=== PATIENT | female | born 1980 | race Caucasian/White ===

== ENCOUNTER 2019-01-18 20:12 | Emergency (ER) | payer OTHER, SELFPAY ==
--- OUTSIDE RECORDS SUMMARY | 2019-01-18 20:15 | XMS REPORT | Encounter Summary ---
:1980 Author Reason for Visit sinus symptoms; sore throat; URI Instructions 1. Bronchitis Medrol (Prakash) 4 mg tablets in a dose pack azithromycin 250 mg tablet 2. Allergic rhinitis 3. Body mass index 25-29 - overweight learning about healthy weight 4. Immunization refused 5. Influenza vaccination declined Discussion Note: None recorded. Plan of Care Patient Instructions Meds were sent to your pharmacy today, please call if any issues zpak and medrol dosepak continue flonase and mucinex call/email if you are not feeling better within the next 1-2 weeks increase hydration, take meds with food Reminders Provider Appointments None recorded. Lab None recorded. Referral None recorded. Procedures None recorded. Surgeries None recorded. Imaging None recorded. Medications Name Start Date azithromycin 250 mg tablet TAKE 2 TABLETS (500 MG) BY ORAL ROUTE ONCE DAILY FOR 1 DAY THEN 1 TABLET (250 MG) BY ORAL ROUTE ONCE DAILY FOR 4 DAYS Medrol (Prakash) 4 mg tablets in a dose pack as directed sumatriptan 100 mg tablet Take 1 tablet by oral route as needed. as needed for migraine Medications Administered None recorded. Vitals Height Weight BMI Blood Pressure 5 ft 7 in 164 lbs 25.7 kg/m2 130/82 mm[Hg] Lab Results None recorded. Allergies Code Code System Name Reaction Severity Status Onset NKDA Problems Name Status Onset Date Source Migraine Active 04/17/2018 Procedures None recorded. Vaccine List None recorded. Social History Smoking Status Heavy Tobacco Smoker (1 PPD) Past Encounters 11/05/2018 Bronchitis; Allergic Rhinitis; Body Mass Index 25-29 - Overweight; Immunization Refused; Influenza Vaccination Declined Stephanie Barker MD: [address], [address], [place] [address], Ph. History of Present Illness Note: 38 yo female, accompanied by c/o ST, nasal drainage/congestion , dark yellow/thick mucous, cough, heavy, thick dark yellow sputum, x 6 days, worse yesterday<div>no wheeze, ear pain, n/v/d</div><div> taking OTC mucinex and flonase with mild relief</div>Review of Systems: ROS as noted in the HPI Review of Systems None recorded. Physical Exam Notes: General: well developed, well nourished, in no acute distress. fatigued

Head: normocephalic and atraumatic.

Eyes: PERRL/EOM intact, conjunctiva and sclera clear with out nystagmus.

Ears: TM's intact and clear with normal canals with grossly normal hearing.

Nose: turbinates congested, no sinus TTP. no deformity, discharge, inflammation, or lesions.

Mouth: (+) injection of posterior oropharynx, otherwise no deformity or lesions with good dentition.

Neck: no masses, thyromegaly , (+) left tender CLN < 1 cm

Chest Wall: no deformities or masses noted.

Lungs: clear bilaterally to auscultation. nonlabored respiratory effort, no wheeze, rales or rhonchi

Heart: chest non-tender; regular rate and rhythm, S1, S2 without murmurs, rubs, or gallops

Abdomen: soft, nontender, nondistended, no masses, no hernia, no rebound, normoactive bowel sounds

Msk: no deformity or scoliosis noted of thoracic or lumbar spine.

Pulses: pulses normal in all 4 extremities.

Extremities: no clubbing, cyanosis, edema, or deformity noted with normal full range of motion of all joints.

Neurologic: no focal deficits, cranial nerves II-XII grossly intact with normal sensation, reflexes, coordination, muscle strength and tone.

Skin: intact without lesions or rashes.

Lymph Nodes:no significant cervical, axillary or supraclavicular adenopathy.

Psych: alert and cooperative; normal mood and affect; normal attention span and concentration. No suicidal/homicidal ideations, no panic attacks
--- OUTSIDE RECORDS SUMMARY | 2019-01-18 20:15 | XMS REPORT | Encounter Summary ---
:1980 Author Reason for Visit Right lump in neck Instructions 1. Cervical lymphadenitis Keflex 500 mg capsule 2. Elevated blood-pressure reading without diagnosis of hypertension elevated blood pressure: care instructions Discussion Note: None recorded. Plan of Care Reminders Provider Appointments None recorded. Lab None recorded. Referral None recorded. Procedures None recorded. Surgeries None recorded. Imaging None recorded. Medications Name Start Date Keflex 500 mg capsule Take 1 capsule every 8 hours by oral route as directed for 10 days. sumatriptan 100 mg tablet Take 1 tablet by oral route as needed. as needed for migraine Medications Administered None recorded. Vitals Height Weight BMI Blood Pressure 5 ft 7 in 166.2 lbs 26 kg/m2 160/110 mm[Hg] Lab Results None recorded. Allergies Code Code System Name Reaction Severity Status Onset NKDA Problems Name Status Onset Date Source Migraine Active 04/17/2018 Procedures None recorded. Vaccine List None recorded. Social History Smoking Status Heavy Tobacco Smoker (1 PPD) Past Encounters 11/21/2018 Cervical Lymphadenitis; Elevated Blood-pressure Reading without Diagnosis of Hypertension Bandar Morales MD: [address], [address], [place] [address] , Ph. 11/05/2018 Bronchitis; Allergic Rhinitis; Body Mass Index 25-29 - Overweight; Immunization Refused; Influenza Vaccination Declined Stephanie Barker MD: [address], [address], [place] [address], Ph. History of Present Illness Note: Complaining of a tender lump in the R side of the neck since 2 days ago. Concomitantly, difficulty swallowing, nasal congestion (hx of chronic allergic rhinitis). Denies ear pain, fever or weight loss. Review of Systems Comprehensive General Adult ROS Reported By: Patient Constitutional: Constitutional: no fever Eyes: Eyes: no vision change ENMT: Nose: sinus problems Cardiovascular: Cardiovascular: no chest pain, no palpitations, no lightheadedness Respiratory: Respiratory: no cough, no wheezing, no shortness of breath Gastrointestinal: Gastrointestinal: no abdominal pain, no nausea, no vomiting , no constipation, no diarrhea Musculoskeletal: Musculoskeletal: no muscle aches, no swelling in the extremities Neurologic: Neurologic: no loss of consciousness, no headaches Psychiatric: Psych: no depression, no alcohol abuse, no anxiety, no suicidal thoughts Physical Exam General Adult Exam (male) Reported By: Patient Constitutional: General Appearance: healthy-appearing, overweight. Level of Distress: NAD. Ambulation: ambulating normally Psychiatric: Insight: good judgement. Mental Status: active and alert, normal mood, normal affect. Orientation: to time, to place, to person. Memory: recent memory normal, remote memory normal Eyes: Lids and Conjunctivae: non-injected, no discharge. EOM: EOMI ENMT: Ears: TMs clear. Nose: no sinus tenderness, nasal discharge, post nasal drip. Lips, Teeth, and Gums: no mouth or lip ulcers. Oropharynx: moist mucous membranes, no erythema, no exudates Neck: Neck: supple, trachea midline. Lymph Nodes: cervical LAD. Thyroid: no enlargement, non-tender Lungs: Auscultation: breath sounds normal Cardiovascular: Heart Auscultation: RRR, normal S1, normal S2, no murmurs Musculoskeletal:: Motor Strength and Tone: normal, normal tone. Extremities: no edema Neurologic: Gait and Station: normal gait Skin: Inspection and palpation: no rash, no lesions
[2019-01-18] MEDS ORDERED: DIPHENHYDRAMINE 50 MG/ML VIAL ONE (21:41)
[2019-01-18] MEDS ORDERED: NA CHLORIDE 0.9% 1,000 ML ONE (21:41)
[2019-01-18] MEDS ORDERED: METOCLOPRAMIDE 10 MG/2mL INJ ONE (21:41)
--- NOTE | 2019-01-18 23:13 | ER ---
Nurse's Notes [facility] Name: Cher Ball Age: 38 yrs Sex: Female : 1980 Arrival Date: 01/18/2019 Time: 20:16 Bed 28 Private MD: Out, [facility] Diagnosis: Migraine Presentation: 01/18 21:00 Presenting complaint: Patient states: "I am having a sever migraine that won't go jd3 away.". Transition of care: patient was not received from another setting of care. Onset of symptoms was January 18, 2019. Risk Assessment: Do you want to hurt yourself or someone else? Patient reports no desire to harm self or others. Initial Sepsis Screen: Does the patient meet any 2 criteria? No. Patient's initial sepsis screen is negative. Does the patient have a suspected source of infection? No. Patient's initial sepsis screen is negative. Care prior to arrival: None. 21:00 Method Of Arrival: Ambulatory jd3 21:00 Acuity: DWIGHT 3 jd3 Triage Assessment: 21:43 Headache History: The patient has had previous headaches and this one is similar to mg2 previous episodes. General: Behavior is calm, cooperative. Pain:. 22:54 Pain: Also complains of photophobia. 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 - Social history:: Smoking status: Patient uses tobacco products, smokes one pack cigarettes per day. - Ebola Screening: : Patient negative for fever greater than or equal to 101.5 degrees Fahrenheit, and additional compatible Ebola Virus Disease symptoms. Screenin:42 Abuse screen: Denies threats or abuse. Denies injuries from another. Nutritional mg2 screening: No deficits noted. Tuberculosis screening: No symptoms or risk factors identified. Fall Risk IV access (20 points). Assessment: 21:41 General: Appears in no apparent distress. uncomfortable, Behavior is calm, cooperative. mg2 Pain: Complains of pain in head Pain does not radiate. Pain currently is 10 out of 10 on a pain scale. Quality of pain is described as aching, Pain began gradually, today Is intermittent. Neuro: Level of Consciousness is awake, alert, obeys commands, Oriented to person, place, time, situation, Reports headache frontal area. Cardiovascular: Capillary refill < 3 seconds Patient's skin is warm and dry. Respiratory: Airway is patent Respiratory effort is even, unlabored, Respiratory pattern is regular, symmetrical. GI: No signs and/or symptoms were reported involving the gastrointestinal system. : No signs and/or symptoms were reported regarding the genitourinary system. EENT: No signs and/or symptoms were reported regarding the EENT system. Derm: Skin is intact, is healthy with good turgor, Skin is pink, warm \\T\\ dry. normal. Musculoskeletal: Circulation, motion, and sensation intact. Capillary refill < 3 seconds. 22:52 Reassessment: Patient states feeling better. Patient states symptoms have improved. mg2 Vital Signs: 21:02 BP 155 / 99; Pulse 81; Resp 19 S; Temp 98.1(O); Pulse Ox 98% on R/A; Weight 77.11 kg jd3 (R); Height 5 ft. 7 in. (170.18 cm) (R); Pain 10/10; 22:52 BP 153 / 98; Pulse 78; Resp 18; Pulse Ox 100% on R/A; Pain 6/10; mg2 23:25 BP 145 / 78; Pulse 77; Resp 18; Temp 98.5; Pulse Ox 100% on R/A; Pain 2/10; mg2 21:02 Body Mass Index 26.63 (77.11 kg, 170.18 cm) jd3 ED Course: 20:16 Patient arrived in ED. es 20:17 Out, [facility] is Private Physician. es 21:01 Triage completed. jd3 21:03 Arm band placed on. jd3 21:06 Joel Perez MD is Attending Physician. ps1 21:16 Nino Monique, ROXANNA is Primary Nurse. mg2 21:42 Patient has correct armband on for positive identification. Pulse ox on. NIBP on. Door mg2 closed. Warm blanket given. 21:42 No provider procedures requiring assistance completed. Inserted saline lock: 20 gauge mg2 in left antecubital area, using aseptic technique. 21:46 Harry Benavides NP is PHCP. pm1 23:24 IV discontinued, intact, bleeding controlled, No redness/swelling at site. Pressure mg2 dressing applied. Administered Medications: :41 Drug: Reglan 10 mg Route: IVP; Site: left antecubital; mg2 23:23 Follow up: Response: No adverse reaction; Marked relief of symptoms mg2 :41 Drug: Benadryl 50 mg Route: IVP; Site: left antecubital; mg2 23:23 Follow up: Response: No adverse reaction; Marked relief of symptoms mg2 21:41 Drug: NS 0.9% 1000 ml Route: IV; Rate: 1 bolus; Site: left antecubital; mg2 23:22 Follow up: Response: No adverse reaction; IV Status: Completed infusion; IV Intake: mg2 1000ml Intake: 23:22 IV: 1000ml; Total: 1000ml. mg2 Outcome: 23:12 Discharge ordered by MD. pm1 23:24 Discharged to home ambulatory, with family. mg2 23:24 Condition: stable 23:24 Discharge instructions given to patient, family, Instructed on discharge instructions, follow up and referral plans. Demonstrated understanding of instructions, follow-up care. 23:26 Patient left the ED. mg2 Signatures: Mala Lugo Patrick, NP LINGO CLEANER pm1 Neno Saldivar RN RN jd3 Joel Perez MD MD ps1 Nino Monique RN RN mg2 Corrections: (The following items were deleted from the chart) 23:25 22:50 BP 145 / 78; Pulse 77bpm; Resp 18bpm; Pulse Ox 100% RA; Temp 98.5F; Pain 2/10; mg2mg2
--- NOTE | 2019-01-18 23:14 | EDPHYS ---
Physician Documentation [facility] Name: Cher Ball Age: 38 yrs Sex: Female : 1980 Arrival Date: 01/18/2019 Time: 20:16 Bed 28 Private MD: Out, [facility] ED Physician Joel Perez HPI: 01/18 21:16 This 38 yrs old Female presents to ER via Ambulatory with complaints of ps1 Headache. 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 Attempted to ps1 take sumatriptan to break her migraine. States that she had episodes of vomiting and has not been able to break the migraine .She does not have neurology care. She states that his episode is similar to her previous in terms of location and presentation. Frontal and bandlike. Associated with photo and phonophobia. More intense this episode. . 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 - Social history:: Smoking status: Patient uses tobacco products, smokes one pack cigarettes per day. - Ebola Screening: : Patient negative for fever greater than or equal to 101.5 degrees Fahrenheit, and additional compatible Ebola Virus Disease symptoms. ROS: 21:16 Constitutional: Negative for fever, chills, and weight loss, Eyes: Negative for injury, ps1 pain, redness, and discharge, ENT: Negative for injury, pain, and discharge, Cardiovascular: Negative for chest pain, palpitations, and edema, Respiratory: Negative for shortness of breath, cough, wheezing, and pleuritic chest pain, Abdomen/GI: Negative for abdominal pain, nausea, vomiting, diarrhea, and constipation, Skin: Negative for injury, rash, and discoloration. 21:16 Neuro: Positive for headache. Exam: 21:16 Constitutional: This is a well developed, well nourished patient who is awake, alert, ps1 and in no acute distress. Head/Face: Normocephalic, atraumatic. Eyes: Pupils equal round and reactive to light, extra-ocular motions intact. Lids and lashes normal. Conjunctiva and sclera are non-icteric and not injected. Chest/axilla: Normal chest wall appearance and motion. Nontender with no deformity. No lesions are appreciated. Cardiovascular: Regular rate and rhythm. No gallops, murmurs, or rubs. Normal PMI, no JVD. No pulse deficits. Respiratory: Lungs have equal breath sounds bilaterally, clear to auscultation and percussion. No rales, rhonchi or wheezes noted. No increased work of breathing, no retractions or nasal flaring. Abdomen/GI: Soft, non-tender, with normal bowel sounds. No distension or tympany. No guarding or rebound. No evidence of tenderness throughout. Skin: Warm, dry with normal turgor. Normal color with no rashes, no lesions, and no evidence of cellulitis. MS/ Extremity: Pulses equal, no cyanosis. Neurovascular intact. Full, normal range of motion. Neuro: Awake and alert, GCS 15, oriented to person, place, time, and situation. Cranial nerves II-XII grossly intact. Sensory grossly intact. Vital Signs: 21:02 BP 155 / 99; Pulse 81; Resp 19 S; Temp 98.1(O); Pulse Ox 98% on R/A; Weight 77.11 kg jd3 (R); Height 5 ft. 7 in. (170.18 cm) (R); Pain 10/10; 22:52 BP 153 / 98; Pulse 78; Resp 18; Pulse Ox 100% on R/A; Pain 6/10; mg2 23:25 BP 145 / 78; Pulse 77; Resp 18; Temp 98.5; Pulse Ox 100% on R/A; Pain 2/10; mg2 21:02 Body Mass Index 26.63 (77.11 kg, 170.18 cm) jd3 MDM: 21:27 Patient medically screened. ps1 23:09 Data reviewed: vital signs. Data interpreted: Pulse oximetry: on room air is 100 %. pm1 Interpretation: normal. Counseling: I had a detailed discussion with the patient and/or guardian regarding: the historical points, exam findings, and any diagnostic results supporting the discharge/admit diagnosis, the need for outpatient follow up, to return to the emergency department if symptoms worsen or persist or if there are any questions or concerns that arise at home. 23:09 ED course: Patient offered additional pain medication. Patient is at 6/10 pain and does pm1 not want additional medications. She is comfortable at her pain level and wants to go home. Does not want any prescriptions, comfortable with the migraine medications that she has at home. Administered Medications: 21:41 Drug: Reglan 10 mg Route: IVP; Site: left antecubital; mg2 23:23 Follow up: Response: No adverse reaction; Marked relief of symptoms mg2 21:41 Drug: Benadryl 50 mg Route: IVP; Site: left antecubital; mg2 23:23 Follow up: Response: No adverse reaction; Marked relief of symptoms mg2 21:41 Drug: NS 0.9% 1000 ml Route: IV; Rate: 1 bolus; Site: left antecubital; mg2 23:22 Follow up: Response: No adverse reaction; IV Status: Completed infusion; IV Intake: mg2 1000ml Disposition: 01/19 13:20 Co-signature as Attending Physician, Joel Perez MD Available for consultation at [facility] all times. . Disposition: 01/18/19 23:12 Discharged to Home. Impression: Migraine. - Condition is Stable. - Discharge Instructions: Migraine Headache. - Medication Reconciliation Form, Thank You Letter, Antibiotic Education, Prescription Opioid Use form. - Follow up: Emergency Department; When: As needed; Reason: Worsening of condition. Follow up: Private Physician; When: 2 - 3 days; Reason: Recheck today's complaints, Continuance of care, Re-evaluation by your physician. - Problem is new. - Symptoms have improved. Signatures: Harry Benavides NP SECURITY SYSTEM SALES CONSULTANT pm1 Neno Saldivar RN RN jd3 Joel Perez MD MD ps1 Nino Monique RN RN mg2 Corrections: (The following items were deleted from the chart) 01/18 23:26 23:12 01/18/2019 23:12 Discharged to Home. Impression: Migraine. Condition is Stable. mg2 Forms are Medication Reconciliation Form, Thank You Letter, Antibiotic Education, Prescription Opioid Use. Follow up: Emergency Department; When: As needed; Reason: Worsening of condition. Follow up: Private Physician; When: 2 - 3 days; Reason: Recheck today's complaints, Continuance of care, Re-evaluation by your physician. Problem is new. Symptoms have improved. pm1
== END 2019-01-18 23:26 | disposition home or self-care (01) ==
LOC: ER 20:12
DX: G43.909 Migraine, unspecified, not intractable, without status migrainosus (principal); F17.210 Nicotine dependence, cigarettes, uncomplicated
CPT/HCPCS: J2765; J7030